=== PATIENT | male | born 1960 | race Caucasian/White ===

== ENCOUNTER 2018-02-27 12:50 | Day surgery (SDC) | payer BC ==
[~2018-02-27] VITALS: Ht 188 cm; Wt 99.0 kg
[2018-02-27 13:56] VITALS: BP 120/84; PULSE 59; TEMP 98.5
[2018-02-27 14:45] VITALS: BP 130/84; PULSE 63; TEMP 98.2
== END 2018-02-27 14:58 | disposition home or self-care (01) ==
LOC: SDCO 12:50
DX: Z12.11 Encounter for screening for malignant neoplasm of colon (principal); K63.5 Polyp of colon; K57.30 Diverticulosis of large intestine without perforation or abscess without bleeding; K64.0 First degree hemorrhoids
CPT/HCPCS: 30844